=== PATIENT | female | born 1940 | race Caucasian/White ===

== ENCOUNTER 2024-12-05 12:52 | Emergency (ER) | payer MEDICARE, SELFPAY ==
[2024-12-05 13:05] VITALS: BP 145/69; PULSE 66; RESP 14; TEMP 37.1; O2SAT 99
--- NOTE | 2024-12-05 13:05 | ED.URI ---
HPI - URI/Sore Throat General Chief Complaint: Upper Respiratory Infection Stated Complaint: Cough Time Seen by Provider: 12/05/24 13:05 Source: patient, RN notes reviewed and old records reviewed Mode of arrival: ambulatory Limitations: no limitations History of Present Illness HPI Narrative: Patient presents with complaints cough. Says that she has had a cough for few days, today she noticed ?gurgling sounds? and feels more tired than normal. She has not been taking anything for her symptoms. She is not in any distress, including respiratory distress. She reports the cough has been mostly nonproductive. Related Data Home Medications ?Medication ?Instructions ?Recorded ?Confirmed ?Last Taken ?Type calcitriol 0.25 mcg capsule mcg 12/05/24 Unknown History escitalopram oxalate 5 mg tablet mg 12/05/24 Unknown History gabapentin 300 mg capsule mg 12/05/24 Unknown History levothyroxine 100 mcg tablet mcg 12/05/24 Unknown History (Synthroid) mirabegron 50 mg tablet,extended mg PO 12/05/24 Unknown History release 24 hr (Myrbetriq) simvastatin 10 mg tablet mg 12/05/24 Unknown History trospium 20 mg tablet mg 12/05/24 Unknown History Allergies Allergy/AdvReac Type Severity Reaction Status Date / Time Penicillins Allergy Unknown Other Verified 12/05/24 12:57 Sulfa (Sulfonamide Allergy Unknown Other Verified 12/05/24 12:57 Antibiotics) Review of Systems Review of Systems: All systems reviewed & are unremarkable except as noted in HPI and below Constitutional: Constitutional: Reports no additional constitutional complaints and Reports lethargy ENT: Reports system reviewed and no additional complaints, except as documented Cardiovascular: Cardiovascular: Reports no additional cardiovascular complaints Respiratory: Respiratory: Reports no additional respiratory complaints, Reports chest congestion, Reports cough, Reports excessive phlegm production and Reports wheezing Gastrointestinal: Gastrointestinal: Reports no additional gastrointestinal complaints PMFSH Comments At the time of my signature, I reviewed and agree with the nursing past medical, surgical, social, and family history. There is no relevant family history pertinent to the patient complaint. Exam Const: General: cooperative, no acute distress, alert and awake Orientation/consciousness: oriented to person, oriented to place and oriented to time HENMT: Head: normal to inspection Resp: Effort & Inspection: normal respiratory effort and able to speak in complete sentences Auscultation: clear to auscultation bilaterally, crackles on the right at the base, no rales, rhonchi right lower and no wheezes Cardio: Palpation: normal PMI Rate: regular rate Rhythm: regular rhythm Heart sounds: S1 normal heart sound present and S2 normal heart sound present Neuro: General: oriented to person, oriented to place and oriented to time Cranial nerves: Yes CN's II-XII intact bilaterally Psych: Appearance: grossly normal Thought process: Normal thought process present Insight: Good insight present (Psych) Judgement: Good judgement present (Psych) Course Course Level of Care: Express Care Visit Vital Signs Vital signs: Reviewed MDM - URI/Sore Throat MDM Narrative Medical decision making narrative: No x-ray available, patient with abnormal lung sounds, advanced age. Start doxycycline, prednisone burst, bronchodilator. Emergency department precautions discussed. Discharge instructions reviewed with patient, as well as provided in writing per nursing staff. The instructions also include specific and strict return/GO TO THE ER as well as f/u information. All questions have been answered, and the patient deny any further questions with discharge and discharge plan. Some parts of this dictation were generated by voice recognition software and may contain typographical and/or grammatical inaccuracies. Differential Diagnosis Differential diagnosis: Likely upper respiratory infection, otitis media, sinusitis, bronchitis and influenza Medical Records Attestation: I reviewed the patient's medical records. Discharge Plan Discharge Clinical Impression: Pneumonia Qualifiers: Pneumonia type: due to unspecified organism Laterality: right Lung location: lower lobe of lung Qualified Code(s): J18.9 - Pneumonia, unspecified organism Patient Disposition: Home, Self-Care Condition: Stable Instructions: Antibiotic Form, Pneumonia (ED) Additional Instructions: Take medication as prescribed. Follow with primary care provider. Emergency department for new or worse symptoms Patient Language: French Prescriptions: New doxycycline hyclate 100 mg capsule 100 mg PO DAILY Qty: 20 0RF prednisone 50 mg tablet 50 mg PO DAILY Qty: 5 0RF albuterol sulfate [Ventolin HFA] 90 mcg/actuation HFA aerosol inhaler 2 puff inhalation QID PRN (Reason: shortness of breath or wheezing) Qty: 8.5 0RF No Action simvastatin 10 mg tablet levothyroxine [Synthroid] 100 mcg tablet gabapentin 300 mg capsule calcitriol 0.25 mcg capsule escitalopram oxalate 5 mg tablet trospium 20 mg tablet mirabegron [Myrbetriq] 50 mg tablet extended release 24 hr PO Follow-up/Referrals: Bola Gallo [Other] - 1 Week Time of Disposition: 13:45
[2024-12-05 13:15] VITALS: PULSE 66; RESP 14; O2SAT 99
== END 2024-12-05 13:50 | disposition home or self-care (01) ==
PROVIDERS: Emergency Provider Nurse Practitioner Family
DX: J18.9 Pneumonia, unspecified organism (principal); I10 Essential (primary) hypertension; E78.00 Pure hypercholesterolemia, unspecified; E89.0 Postprocedural hypothyroidism; Z85.850 Personal history of malignant neoplasm of thyroid
CPT/HCPCS: 99203; G0463